=== PATIENT | female | born 1975 | race Caucasian/White ===

== ENCOUNTER → 2017-01-05 | Outpatient (CLI) | payer BC ==
[2017-01-05 17:55] LABS: THYROID STIMULATING HORMONE 1.28 uIu/ml (0.300-4.500)
== END | disposition home or self-care (01) ==
LOC: C.LAB1850 16:28
PROVIDERS: ATTEND Internal Medicine Endocrinology, Diabetes & Metabolism
DX: E03.9 Hypothyroidism, unspecified (principal); E06.3 Autoimmune thyroiditis

== ENCOUNTER → 2017-07-19 | Outpatient (CLI) | payer BC ==
[2017-07-19 13:06] LABS: THYROID STIMULATING HORMONE 0.639 uIu/ml (0.300-4.500)
== END | disposition home or self-care (01) ==
LOC: C.LABPBG 08:44
PROVIDERS: ATTEND Internal Medicine Endocrinology, Diabetes & Metabolism
DX: E03.9 Hypothyroidism, unspecified (principal)

== ENCOUNTER → 2018-01-02 | Outpatient (CLI) | payer BC | END | disposition home or self-care (01) | LOC: C.LABPBG 15:35 | PROVIDERS: ATTEND Internal Medicine Endocrinology, Diabetes & Metabolism | DX: E03.9 Hypothyroidism, unspecified (principal) ==

== ENCOUNTER 2024-02-07 06:03 | Observation (INO) ==
--- NOTE | 2024-01-31 13:32 | Anesthesiology Consultation ---
Date of Service January 31, 2024 Assessment & Plan (1) Encounter for pre-operative examination: Chart Review Chart Review: Pending: Refer to Additional Notes / Consult section (please send copy of labs and note to PCP (Fabiano); pt seeing on 02/02/24 ) and Patient NOT seen in Pre Admission Testing Infectious Disease screening: Per PAT nursing assessment on 01/31/24, No known infectious disease contacts in past 10 days or current infectious disease symptoms. No recent travel outside the country. Consults Requested Note to PCP, re: anemia on preop labs History Surgery Operation Date: 02/07/24 07:45 Proposed Procedures p C5-C7 Anterior Cervical Discectomy and Fusion, Spinal Cord Monitoring - Sonny Hermosillo, Height/Weight Height: 5 ft 8 in Weight: 74.843 kg Allergies Allergy/AdvReac Type Severity Reaction Status Date / Time aloe Allergy Unknown hive like Verified 01/31/24 12:59 rash chlorhexidine Allergy Unknown see notes Verified 01/31/24 12:59 erythromycin base Allergy Unknown Vomiting Verified 01/31/24 12:59 Penicillins Allergy Unknown Rash Verified 01/31/24 12:59 Sulfa (Sulfonamide Allergy Unknown Rash Verified 01/31/24 12:59 Antibiotics) Medications Home Medications Medication Instructions Recorded Confirmed Last Taken aspirin 81 mg chewable tablet 81 mg PO QAM 01/31/24 01/31/24 Unknown azelastine 137 mcg (0.1 %) nasal 1 spray intranasal QAM 01/31/24 01/31/24 Unknown spray aerosol cetirizine 10 mg tablet (Zyrtec) 10 mg PO QPM 01/31/24 01/31/24 Unknown dexlansoprazole 60 mg 60 mg PO QAM 01/31/24 01/31/24 Unknown capsule,biphase delayed release famotidine 20 mg tablet 20 mg PO BID 01/31/24 01/31/24 Unknown fexofenadine 180 mg tablet 180 mg PO QAM 01/31/24 01/31/24 Unknown levothyroxine 112 mcg tablet 112 mcg PO QAM 01/31/24 01/31/24 Unknown mometasone 220 mcg/actuation(120 1 inh inhalation QAM 01/31/24 01/31/24 Unknown doses)breath activated powder inhaler (Asmanex Twistsamaritan hospitaler) mometasone 50 mcg/actuation nasal 2 spray intranasal BID 01/31/24 01/31/24 Unknown spray montelukast 10 mg tablet 10 mg PO QAM 01/31/24 01/31/24 Unknown Past Medical History Medical History (Updated 01/31/24 @ 13:39 by Tammy Peace PA-C) Acid reflux Allergic asthma well controlled Anemia Barretts esophagus Cervical radiculopathy "no discs at c 6 &7" Osorio's disease Hiatal hernia History of COVID-19 10/2020. 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 Current: On occ will get light headed. Coping skills to manage. No neuro. 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 [place] teeth removed hx STOP BANG Total 0 Social History Smoking Status: Never smoker Do You Dip or Chew Tobacco: No alcohol intake frequency: holidays/special occasions only Hx Substance Use: No substance use type: does not use Lab Results Anesthesia Preop Results Results Anesthesia Widget: WBC 5.82 K/ul (4.8-10.8) 01/30/24 Hgb 9.5 g/dl (12.0-16.0) L 01/30/24 Hct 33.7 % (37.0-47.0) L 01/30/24 Plt 426 K/uL (130-400) H 01/30/24 PT 10.5 Seconds (9.0-12.0) 01/30/24 PTT 22 Seconds (21-31) 01/30/24 INR 1.0 (0.9-1.1) 01/30/24 Urine Color Yellow 01/30/24 Urine Appearance Clear (Clear) 01/30/24 Urine pH 5.0 (4.5-7.5) 01/30/24 Urine Specific [place] 1.030 (1.000-1.030) 01/30/24 Urine Protein Negative (Negative) 01/30/24 Urine Glucose (UA) Negative (Negative) 01/30/24 Urine Ketones Trace (Negative) H 01/30/24 Urine Blood Negative (Negative) 01/30/24 Urine Nitrite Negative (Negative) 01/30/24 Urine Bilirubin Negative (Negative) 01/30/24 Urine Urobilinogen Negative (Negative) 01/30/24 Urine Leukocyte Esterase Negative (Negative) 01/30/24 Blood Type B Negative 01/30/24 Antibody Screen NEGATIVE 01/30/24 Testing Electrocardiogram Date: 01/30/24 Findings: + NSR @ (71bpm) NS ST abn Chest X-Ray Date: 01/30/24 Findings: + NAD
[2024-02-07] MEDS: VANCOMYCIN HCL 1,250 MG in SODIUM CHLORIDE 0.9% 250 ML IV SCH (07:01)
[2024-02-07] MEDS: LR 15ML/HR IV SCH (07:01)
[2024-02-07] MEDS: GABAPENTIN 900 MG DOSE PO SCH (07:02)
[2024-02-07] MEDS: LR 60ML/HR IV SCH (07:02)
[2024-02-07] MEDS: ACETAMINOPHEN 500 MG TAB PO SCH (07:02)
[2024-02-07] MEDS ORDERED: ROCURONIUM BROMIDE 10 MG/ML 5 ML VIAL IV ONE (07:05)
[2024-02-07] MEDS ORDERED: PROPOFOL IV EMULSION 10 MG/ML 20 ML VIAL IV ONE (07:05)
[2024-02-07] MEDS ORDERED: DEXAMETHASONE SOD INJ 4 MG/ML VIAL ONE (07:05)
[2024-02-07] MEDS ORDERED: ONDANSETRON INJ 2 MG/ML 2 ML VIAL ONE (07:05)
[2024-02-07] MEDS ORDERED: LIDOCAINE 2% 2 ML VIAL/AMP(20MG/ML) INFIL ONE (07:05)
[2024-02-07] MEDS ORDERED: fentaNYL citrate PF 100 MCG/2 ML VIAL ONE (07:06)
[2024-02-07] MEDS ORDERED: MIDAZOLAM HCL 1 MG/ML 2ML VIAL ONE (07:06)
[2024-02-07] MEDS ORDERED: SUGAMMADEX SODIUM 200 MG/2 ML VIAL IV ONE (07:06)
[2024-02-07] MEDS ORDERED: ONDANSETRON INJ 2 MG/ML 2 ML VIAL IV PRN (07:10)
[2024-02-07] MEDS ORDERED: ePHEDrine sulfate 50 MG/ML AMP IV PRN (07:10)
[2024-02-07] MEDS ORDERED: PROMETHAZINE HCL 6.25 MG in SODIUM CHLORIDE 0.9% 50 ML IV PRN (07:10)
[2024-02-07] MEDS ORDERED: HYDROmorphone INJ 2 MG/ML SYR/VIAL IV PRN (07:10)
[2024-02-07] MEDS ORDERED: ATROPINE SULFATE 0.1 MG/ML 10ML SYR IV PRN (07:10)
[2024-02-07 07:21] LABS: BUN Creatinine Ratio 17.4 (10-20); Calcium 8.7 mg/dl (8.6-10.3); Creatinine Clr Calc Pharmacy 98.4 ml/min; Est GFR (African American) 117.6 ml/min; Est GFR (Non-African American) 101.5 ml/min; Potassium 3.6 mmol/L (3.5-5.1)
--- NOTE | 2024-02-07 07:45 | History & Physical Bridge Note ---
Date of Service February 07, 2024 History & Physical Bridge Note I have examined the patient, reviewed the History & Physical and in the interval since the performance of the History & Physical I have noted the following changes of clinical significance: no changes noted
--- NOTE | 2024-02-07 07:46 | History & Physical Report ---
Date of Service February 07, 2024 Assessment & Plan (1) Herniation of cervical intervertebral disc with radiculopathy: Plan: Patient anterior cervical discectomy and fusion C5-C7 History of Present Illness Chief Complaint: Neck and arm pain Primary Care Provider: Real Mario This is a 48-year-old female presents with chronic persistent neck and arm pain after failing course of nonoperative care she is here for surgical intervention. Allergies Allergy/AdvReac Type Severity Reaction Status Date / Time aloe Allergy Unknown hive like Verified 02/07/24 06:37 rash chlorhexidine Allergy Unknown see notes Verified 02/07/24 06:37 erythromycin base Allergy Unknown Vomiting Verified 02/07/24 06:37 Penicillins Allergy Unknown Rash Verified 02/07/24 06:37 Sulfa (Sulfonamide Allergy Unknown Rash Verified 02/07/24 06:37 Antibiotics) Home Medications Medication Instructions Recorded Confirmed Type aspirin 81 mg chewable tablet 81 mg PO QAM 01/31/24 02/07/24 History azelastine 137 mcg (0.1 %) nasal 1 spray intranasal QAM 01/31/24 02/07/24 History spray aerosol cetirizine 10 mg tablet (Zyrtec) 10 mg PO QPM 01/31/24 02/07/24 History dexlansoprazole 60 mg 60 mg PO QAM 01/31/24 02/07/24 History capsule,biphase delayed release famotidine 20 mg tablet 20 mg PO BID 01/31/24 02/07/24 History fexofenadine 180 mg tablet 180 mg PO QAM 01/31/24 02/07/24 History levothyroxine 112 mcg tablet 112 mcg PO QAM 01/31/24 02/07/24 History mometasone 220 mcg/actuation(120 1 inh inhalation QAM 01/31/24 02/07/24 History doses)breath activated powder inhaler (Asmanex Twisthaler) mometasone 50 mcg/actuation nasal 2 spray intranasal BID 01/31/24 02/07/24 History spray montelukast 10 mg tablet 10 mg PO QAM 01/31/24 02/07/24 History cholecalciferol (vitamin D3) 125 125 mcg PO BID 02/07/24 02/07/24 History mcg (5,000 unit) tablet (Vitamin D3) Past Med/Surg History Problem List (Updated 02/07/24 @ 07:46 by Sonny Hermosillo DO) Herniation of cervical intervertebral disc with radiculopathy Encounter for pre-operative examination Cervical radiculopathy Medical History (Updated 02/07/24 @ 07:46 by Sonny Hermosillo DO) Anemia History of COVID-19 10/2020. 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 Current: On occ will get light headed. Coping skills to manage. No neuro. 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 History of endoscopy History of colonoscopy Social History Smoking Status: Never smoker Do You Dip or Chew Tobacco: No; Hx Substance Use: No Preferred Language: Moroccan Communication Ability: Effective Mold Cleaner Required: No Beliefs That Will Affect Care: Restoration Restoration Beliefs: Sabianist Current Living Situation: Spouse and Family Feels Safe at Home: Yes Assistive Devices: Glasses Physical Exam Physical Exam: Patient is alert and oriented Heart regular in rhythm Lungs clear Results & Data Results & Data Vital Signs (Past 12 Hours) Vital Signs Temp Pulse Resp BP Pulse Ox O2 Del Method 02/07/24 06:39 36.8 C 68 18 118/75 100 Room Air
[2024-02-07] MEDS: ceFAZolin 330 MG/ML 1 GM VIAL ONE (08:50)
[2024-02-07] MEDS: FLOSEAL HEMOSTATIC MATRIX 10ML TOP ONE (08:50)
--- NOTE | 2024-02-07 09:17 | Operative Report ---
Post Operative Report Pre & Post Diagnosis Operation Date: 02/07/24 07:45 Pre-Op Diagnosis: Cervical spinal stenosis with radiculopathy Post-Op Diagnosis: Same I identified the patient and participated in the time-out.: Yes Procedure Operation Date: 02/07/24 07:45 Actual Procedures #1 anterior cervical discectomy with bilateral foraminotomies C5-C6 C6-C7. #2 anterior cervical arthrodesis C5-C6 C6-C7. #3 placement of Spira 7 mm cage filled with os design at C5-C6 and 8 mm cage at C6 with os design at C6-C7 there was approximately 1/2 cc of graft in each cage.. #4 application of K2 M plate screws from C5-C7. Surgeon Sonny Hermosillo DO Programming Equipment Operator Jing Walsh Estimated Blood Loss 10 Findings Consistent with Post-Op Diagnosis Specimens None Indications This is a 48-year-old female presents problems diagnosis of failed course of nonoperative care is here for surgical invention. Description of Procedure Patient was met with identified informed consent obtained. Patient was then taken to the operative suite underwent patient placed in spine position the [place] table to [place] lateral. All bony prominences well-padded eyes inspected to ensure no external precipice upon the. This point the anterior cervical spine was prepped and draped normal sterile fashion. With the assistance of fluoroscopy [place] the C6 vertebral body and a transverse incision was placed along the right anterior aspect of the cervical spine overlying this region. Blunt dissection with the assistance of bipolar electrocautery form down to expose the anterior cervical spine from C5-C7. Self-retaining tractors placed. Then performed a complete discectomy of C5-C6 out to the uncovertebral joints bilaterally. [place] distracting pins utilized to assist in visualization. Removed all posterior annular fibers longitudinal ligament bilateral foraminotomies performed. Endplates burred to subcortical bleeding bone and a 7 mm spiral cage filled with catalyst bone graft apposition. Distracting apparatus was removed and proceeded to see 6 C7. Again complete discectomy performed out to the uncovertebral notch bilaterally. [place] distracting pins again utilized. Removed all posterior annular fibers longitudinal ligament bilateral foraminotomies performed endplates burred to s ubcortical mean bone and an 8 mm spiral cage filled with catalyst bone graft tapped in position. Distracting and pressors removed. All anterior osteophytes burred to a smooth cortical surface. A K2 M plate and screws then applied with the assistance of fluoroscopy from C5-C7. The incision was then copiously irrigated explored to ensure no damage to surrounding structures remaining bleeding. 10 round POPPY drain inserted. The incision was then closed with 2 Vicryl in the fascia and 4 Monocryl for final skin closure. Steri-Strips sterile dressing placed. Patient waken taken to PACU in stable condition. Please note Jing Walsh was present at the entire procedure involved patient positioning complex portions of the surgery and final skin closure. Lastly spinal cord monitoring was utilized at the procedure no changes noted. I attest to the content of the Intraoperative Record and any orders documented therein. Any exceptions are noted below.
[2024-02-07] MEDS: fentaNYL citrate PF 100 MCG/2 ML VIAL IV PRN (09:35)
--- NOTE | 2024-02-07 10:27 | Anesthesiology Progress Note ---
Date of Service February 07, 2024 Anesthesia Post Procedure Vital Signs Vital Signs: Temp Pulse Pulse Resp BP Pulse Ox O2 Del Method 02/07/24 10:15 57 L 13 116/69 100 Nasal Cannula 02/07/24 10:05 66 12 104/66 100 Nasal Cannula 02/07/24 09:55 77 13 108/69 99 Nasal Cannula 02/07/24 09:45 60 14 120/68 100 Nasal Cannula 02/07/24 09:35 76 16 124/73 100 Nasal Cannula 02/07/24 09:27 36.1 C L 74 18 123/86 100 Nasal Cannula 02/07/24 06:39 36.8 C 68 18 118/75 100 Room Air O2 Flow Rate 02/07/24 10:15 2 02/07/24 10:05 2 02/07/24 09:55 2 02/07/24 09:45 4 02/07/24 09:35 4 02/07/24 09:27 4 02/07/24 06:39 Pain Intensity Neck: Pain Intensity: 4 Transfer of Care Handoff Completed per policy Notes Mental Status: alert / awake / arousable and participated in evaluation Patient Amnestic to Procedure: Yes Nausea / Vomiting: adequately controlled Pain: adequately controlled Airway Patency, RR, SpO2: stable & adequate BP & HR: stable & adequate Hydration State: stable & adequate Anesthetic Complications: no major complications apparent
--- NOTE | 2024-02-07 10:36 | Fluoroscopy Report ---
INTRAOPERATIVE RADIOGRAPHS CLINICAL HISTORY: C5-C7 spinal fusion. Fluoro time: 11 seconds Ka,r: 0.78 mGy FINDINGS: 2 spot fluoroscopic views of the cervical spine are presented. There has been discectomy at C5-C6 and C6-C7 with anterior spinal fusion at C5-C7. The orthopedic hardware appears intact. An end otracheal tube is in place. IMPRESSION: Intraoperative images from cervical spinal fusion surgery as above. Electronically signed by: Mario Kc M.D. 02/07/2024 10:35 AM
[2024-02-07] MEDS ORDERED: DO NOT ADMINISTER PNEUMOCOCCAL VACCINE PRN (10:57)
[2024-02-07] MEDS ORDERED: HYDROmorphone INJ 1 MG/ML SYRINGE IV PRN (10:57)
[2024-02-07] MEDS ORDERED: NALOXONE HCL 0.4 MG/1 ML VIAL/CARP IV PRN (10:57)
[2024-02-07] MEDS ORDERED: METOCLOPRAMIDE HCL INJ 5 MG/ML 2 ML VIAL IV PRN (10:57)
[2024-02-07] MEDS ORDERED: ACETAMINOPHEN 500 MG TAB PO PRN (10:57)
[2024-02-07] MEDS ORDERED: ACETAMINOPHEN 1,000 MG/100 ML VIAL IV PRN (10:57)
[2024-02-07] MEDS ORDERED: DO NOT ADMINISTER FLU VACCINE PRN (10:57)
[2024-02-07] MEDS ORDERED: SOD PHOSPHATE/SOD BIPHOSPHATE ENEMA 132 ML BTL PR PRN (10:57)
[2024-02-07] MEDS ORDERED: MAGNESIUM HYDROXIDE SUSP 30 ML UDC PO PRN (10:57)
[2024-02-07] MEDS ORDERED: ONDANSETRON 4 MG OD TAB PO PRN (10:57)
[2024-02-07] MEDS ORDERED: LORazepam 0.5 MG in SYRINGE 0.25 ML IV PRN (10:57)
[2024-02-07] MEDS ORDERED: FAMOTIDINE 20 MG TAB PO PRN (10:57)
[2024-02-07] MEDS ORDERED: PROMETHAZINE HCL 12.5 MG in SODIUM CHLORIDE 0.9% 50 ML IV PRN (10:57)
[2024-02-07] MEDS ORDERED: dexAMETHasone 8 MG in SYRINGE 0 ML IV PRN (10:57)
[2024-02-07] MEDS ORDERED: ALUMINUM/MAGNESIUM SUSP 30 ML UDC PO PRN (10:57)
[2024-02-07] MEDS ORDERED: hydrOXYzine HCl 25 MG TAB PO PRN (10:57)
[2024-02-07] MEDS ORDERED: LORazepam 0.5 MG TAB PO PRN (10:57)
[2024-02-07] MEDS ORDERED: bisacodyL 10 MG SUPP PR PRN (10:57)
[2024-02-07] MEDS ORDERED: RACEPINEPHRINE 2.25% NEBU SOLN 0.5 ML VIAL INH PRN (10:57)
[2024-02-07] MEDS ORDERED: diphenhydrAMINE Capsule 25 MG CAP PO PRN (10:57)
[2024-02-07] MEDS: HYDROmorphone INJ 0.5 MG/0.5 ML SYR IV PRN (11:44)
[2024-02-07] MEDS: ONDANSETRON INJ 2 MG/ML 2 ML VIAL IV PRN (11:44)
[2024-02-07] MEDS: LACTATED RINGER'S 1,000 ML IV SCH (12:05)
[2024-02-07] MEDS: CLINDAMYCIN/D5W 600 MG/50 ML BAG IV SCH (16:27)
[2024-02-07] MEDS: CHOLECALCIFEROL 125 MCG (5,000 UNITS) TAB PO SCH (21:09)
[2024-02-07] MEDS: CETIRIZINE HCL 10 MG TABLET PO SCH (21:09)
[2024-02-07] MEDS: FAMOTIDINE 20 MG TAB PO SCH (21:09)
[2024-02-07] MEDS: DOCUSATE SODIUM/SENNA 50/8.6MG TAB PO SCH (21:09)
[2024-02-07] MEDS: FLUTICASONE PROPIONATE NA SPR 16 GM BTL SCH (21:09)
[2024-02-07] MEDS: oxyCODONE HCL IR 5 MG TAB (IMMEDIATE RELEASE) PO PRN (21:25)
[2024-02-07] MEDS: traMADol HCL 50 MG TABLET PO PRN (23:31)
[2024-02-08] MEDS: LEVOTHYROXINE SODIUM 112 MCG TABLET PO SCH (05:23)
[2024-02-08] MEDS: POLYETHYLENE (MIRALAX) 17 GM PACK PO SCH (05:24)
[2024-02-08] MEDS: dexAMETHasone 6 MG in SYRINGE 0 ML IV SCH (07:46)
[2024-02-08] MEDS: ASPIRIN 81 MG ECTAB PO SCH (07:47)
[2024-02-08] MEDS: MONTELUKAST SODIUM 10 MG TABLET PO SCH (07:47)
[2024-02-08] MEDS: PANTOprazole 40 MG TAB PO SCH (07:47)
[2024-02-08] MEDS: FEXOFENADINE HCL 180 MG TAB PO SCH (07:47)
[2024-02-08] MEDS: FLUTICASONE FUROATE 200MCG 14 PUFFS/INHALER INH SCH (07:48)
[2024-02-08] MEDS: AZELASTINE HCL 0.1% NASAL 200 SPRAYS/27,400 MCG BTL SCH (07:49)
--- NOTE | 2024-02-08 09:42 | Discharge Summary ---
Date of Service February 08, 2024 Admission HPI Per Admitting Provider This is a 48-year-old female presents with chronic persistent neck and arm pain after failing course of nonoperative care she is here for surgical intervention. Admission Exam (Per Admitting) Constitutional WD/WN, vitals as above Eyes normal visual wells by confrontation ENMT external ear and nose normal, oropharynx normal Neck normal visual inspection Respiratory normal respiratory effort Cardiovascular Extremities: normal capillary refill Gastrointestinal (Abdomen) Inspection/Auscultation: abdomen normal to inspection Musculoskeletal Spine: + pain with cervical ROM Extremities: extremities normal to inspection Skin no rashes, warm and dry Neurologic normal touch/pain/proprioception and moves all extremities Psychiatric A+Ox3, euthymic affect Eye Contact: good eye contact Discharge Data Procedures Performed Operation Date: 02/07/24 07:45 Actual Procedures p C5-C7 Anterior Cervical Discectomy and Fusion, Spinal Cord Monitoring(Not Applicable) - Sonny Hermosillo DO Hospital Course (1) Herniation of cervical intervertebral disc with radiculopathy: Beatriz is being discharged home on postoperative day 1 status post ACDF C5-C7. She had an uneventful evening. She is up and ambulatory around the hallways and using the restroom without incident. POPPY drain output last shift was 3 cc. Has some mild dysphagia but is tolerating breakfast. No other complaints. Discharge Instructions ACTIVITY RECOMMENDATIONS: SELF CARE INSTRUCTIONS AFTER CERVICAL FUSIONS 1. No smoking. Smoking drastically decreases the chance of a solid fusion. 2. No bending, lifting more than 5 pounds, or twisting (roll like a log when turning in bed). 3. You may shower 3 days after surgery. Thoroughly dry wound. Do not soak in the tub. 4. Cervical collar: Must be worn at all times including sleeping. You may remove the brace only to bath, eat and if you are sitting in a recliner. 5. Please walk as much as you can for exercise. Gradually increase the distance that you walk as your endurance increases. SPECIAL CARE INSTRUCTIONS: VERY IMPORTANT TO READ AND REVIEW A. Do not take any anti-inflammatory medications (i.e. Indocin, Advil, Aspirin, Naprosyn, Aleve, Motrin, etc.) as these may inhibit the chance of a solid fusion. Tylenol is okay to take. B. Your surgical incision has been closed with a cosmetic suture under the skin that will dissolve in about 6 weeks. In 14 days, you can use a pair of clean scissors and cut the suture that is left outside of the skin at the ends of your incision. C. Complications are uncommon, but please contact us if you have any signs or symptoms of: 1. wound infection (fever higher than 102.5 degrees F, redness, separation of wound, drainage, or increasing pain from the incision) 2. blood clots in legs (pain, swelling, redness and warmth in legs) 3. urinary tract infection (fever higher than 102.5 degrees, burning upon urination or increased frequency of urination) 4. nerve problems (inability to walk on your toes or heels, numbness, loss of bowel or bladder control) 5. any other symptoms that concern you. D. Please call the office at if you have any concerns or questions about your operation or recovery. MANAGING PAIN AFTER SPINAL SURGERY 1. Narcotic medication is intended for short-term use and will be provided for surgical pain. Surgical pain usually lasts for a period of 4-6 weeks. Narcotic medication includes Percocet, Vicodin, Darvocet, Tylenol #3 or Lortab. 2. Longer-term pain is more appropriately treated with non-narcotic medication such as Tylenol ES. 3. Muscle spasm is not appropriately treated with narcotics. Muscle relaxers such as Soma, Flexeril or Skelaxin can be used along with Tylenol ES. 4. Remember that we all live with some "aches and pains". This is not unusual or uncommon after an injury or as we get older. 5. We will provide appropriate medication within the normal guidelines of their prescribed use. We will also be very cautious and aware of potential abuse and extended duration of patients' medication needs. 6. Please allow 2-3 days to process refills. Prescriptions will not be mailed but must be picked up at the office. FOLLOW UP VISIT: Keep your scheduled follow-up appointment. Any questions, please call the office at .
== END 2024-02-08 12:01 | disposition home or self-care (01) ==
LOC: 3E 06:03 → ASU 06:03